=== PATIENT | male | born 2000 ===

== ENCOUNTER 2021-02-27 20:47 | Emergency (ER) | payer SELFPAY ==
[2021-02-27] MEDS ORDERED: Sodium Chloride 0.9% 1,000 ML IV ONE (21:18)
[2021-02-27] MEDS ORDERED: Ondansetron 4 MG/2 ML SDV IVPUSH ONE (21:19)
[2021-02-27] MEDS ORDERED: Ketorolac 30 MG/ML SDV IVPUSH ONE (21:21)
--- NOTE | 2021-02-27 21:32 | EDM.PDOC ---
<Warren Orr E - Last Filed: 02/27/21 21:38> ED HPI GENERAL MEDICAL PROBLEM - General Chief Complaint: Abdominal Pain Stated Complaint: ABDOMINAL PAIN Time Seen by Provider: 02/27/21 20:48 Source of Information: Reports: Patient History Limitations: Reports: No Limitations - History of Present Illness INITIAL COMMENTS - FREE TEXT/NARRATIVE: HISTORY AND PHYSICAL: History of present illness: Patient is a 20-year-old male who presents to the emergency room with complaints of nausea, vomiting, and chest pain when vomiting. He states the nasuea and vomiting just came on suddenly while at home. Once he started vomiting his chest started hurting. No chest pain at rest. Patient denies any fever, chills, headache, change in vision, syncope or near syncope. Denies any back pain, shortness of breath or cough. Denies any abdominal pain, diarrhea, constipation or dysuria. Has not noted any blood in urine or stool. Patient has been eating and drinking appropriately. No recent travel or sick contacts. Review of systems: As per history of present illness and below otherwise all systems reviewed and negative. Past medical history: As per history of present illness and as reviewed below otherwise noncontributory. Surgical history: As per history of present illness and as reviewed below otherwise noncontributory. Social history: See social history for further information Family history: As per history of present illness and as reviewed below otherwise noncontributory. Physical exam: General: Well developed and well nourished 20 year old male. Alert and orientated x 3. Nontoxic in appearance and in no acute distress. Vital signs are stable and have been reviewed by me. Nursing notes were reviewed. HEENT: Atraumatic, normocephalic, pupils equal and reactive bilaterally, negative for conjunctival pallor or scleral icterus, mucous membranes moist, trachea midline. No drooling or trismus noted. No meningeal signs. No hot potato voice noted. Lungs: Clear to auscultation bilaterally. No wheezes, rales, or rhonchi. Chest nontender (Hx of pectus excavatum). Normal work of breathing, no accessory muscles used. Heart: S1S2, regular rate and rhythm without overt murmur, gallops, or rubs. No JVD. No peripheral edema Abdomen: Soft, nondistended, nontender. Normoactive bowel sounds. Negative for masses or costovertebral tenderness. Skin: Intact, warm, dry. No lesions or rashes noted. Hematologic: No petechiae or purpra. Mucosa appropriate color and normal nail bed color and refill. Extremities: Atraumatic, moves all extremities per self without difficulty or deficits, negative for cords or calf pain. Neurovascular unremarkable. Neuro: Awake, alert, oriented. Cranial nerves II through XII unremarkable. Cerebellum unremarkable. Motor and sensory unremarkable throughout. Exam nonfocal. Psychiatric: Mood and affect are appropriate. Normal thought process. Answering questions appropriately. Please note that the patient was seen and evaluated during the 2019 SARS-CoV-2 novel coronavirus pandemic period. Community viral transmission is ongoing at time of this encounter and the emergency department is operating under pandemic response procedures. Medical Decision Making: Patient is a 20-year-old male who presents to the emergency room with complaints of nausea, vomiting and chest pain with emesis. Physical exam patient does not have any chest or abdominal tenderness. We will do basic lab work, IV fluids, Zofran and Toradol. Patient does have a leukocytosis without noted source, will do a CT scan for further evaluation. Diagnostics: CBC, CMP, Lipase Therapeutics: IV fluids, Zofran, Toradol Definitive disposition and diagnosis as appropriate pending reevaluation and review of above. - Related Data Allergies Allergy/AdvReac Type Severity Reaction Status Date / Time No Known Allergies Allergy Verified 02/27/21 21:18 Home Meds: Home Meds Famotidine [Pepcid] 20 mg PO BEDTIME #7 tab 02/27/21 [Rx] Ondansetron [Zofran ODT] 4 mg PO Q6H PRN #8 tab.dis 02/27/21 [Rx] Social & Family History - Tobacco Use Tobacco Use Status *Q: Never Tobacco User Second Hand Smoke Exposure: No - Recreational Drug Use Recreational Drug Use: No ED ROS GENERAL - Review of Systems Review Of Systems: Comprehensive ROS is negative, except as noted in HPI. ED EXAM, GI/ABD - Physical Exam Exam: See Below (See dictation) Departure - Departure Disposition: Home, Self-Care 01 Clinical Impression: Abdominal pain Qualifiers: Abdominal location: generalized Qualified Code(s): R10.84 - Generalized abdominal pain - Discharge Information Prescriptions: Famotidine [Pepcid] 20 mg PO BEDTIME #7 tab Ondansetron [Zofran ODT] 4 mg PO Q6H PRN #8 tab.dis PRN Reason: Nausea Instructions: Abdominal Pain, Adult Referrals: PCP,None [Primary Care Provider] - Forms: ED Department Discharge Additional Instructions: The following information is given to patients seen in the emergency department who are being discharged to home. This information is to outline your options for follow-up care. We provide all patients seen in our emergency department with a follow-up referral. The need for follow-up, as well as the timing and circumstances, are variable depending upon the specifics of your emergency department visit. If you don't have a primary care physician on staff, we will provide you with a referral. We always advise you to contact your personal physician following an emergency department visit to inform them of the circumstance of the visit and for follow-up with them and/or the need for any referrals to a consulting specialist. The emergency department will also refer you to a specialist when appropriate. This referral assures that you have the opportunity for follow-up care with a specialist. All of these measure are taken in an effort to provide you with optimal care, which includes your follow-up. Under all circumstances we always encourage you to contact your private physician who remains a resource for coordinating your care. When calling for follow-up care, please make the office aware that this follow-up is from your recent emergency room visit. If for any reason you are refused follow-up, please contact the [facility] Department at and asked to speak to the emergency department charge nurse. Please follow up with your primary care physician. If you do not have a primary care physician, see below: [facility] [address] [place] [id number] [facility] [address] [place] [id number] [facility] [address] [place] [id number] Sepsis Event Note (ED) - Evaluation Sepsis Screening Result: No Definite Risk <Gerson Ontiveros - Last Filed: 02/27/21 23:23> Course - Vital Signs Last Recorded V/S: Last Vital Signs Temp 96.1 F L 02/27/21 21:14 Pulse 74 02/27/21 22:19 Resp 18 02/27/21 21:14 BP 108/65 02/27/21 22:10 Pulse Ox 100 02/27/21 22:19 - Orders/Labs/Meds Orders: Active Orders 24 hr Category Date Time Status UA RFX AUBREY AND CULT IF INDIC [URIN] Stat Lab 02/27/21 20:51 Ordered Labs: Laboratory Tests 02/27/21 02/27/21 02/27/21 Range/Units 21:20 21:20 21:20 WBC 15.72 H (4.0-11.0) K/uL RBC 5.55 (4.50-5.90) M/uL Hgb 16.6 (13.0-17.0) g/dL Hct 47.4 (38.0-50.0) % MCV 85.4 (80.0-98.0) fL MCH 29.9 (27.0-32.0) pg MCHC 35.0 (31.0-37.0) g/dL RDW Std Deviation 39.8 (28.0-62.0) fl RDW Coeff of Mallory 13 (11.0-15.0) % Plt Count 221 (150-400) K/uL MPV 10.60 (7.40-12.00) fL Neut % (Auto) 89.9 H (48.0-80.0) % Lymph % (Auto) 4.7 L (16.0-40.0) % Wilkes % (Auto) 4.3 (0.0-15.0) % Eos % (Auto) 1.0 (0.0-7.0) % Baso % (Auto) 0.1 (0.0-1.5) % Neut # (Auto) 14.1 H (1.4-5.7) K/uL Lymph # (Auto) 0.7 (0.6-2.4) K/uL Wilkes # (Auto) 0.7 (0.0-0.8) K/uL Eos # (Auto) 0.2 (0.0-0.7) K/uL Baso # (Auto) 0.0 (0.0-0.1) K/uL Nucleated RBC % 0.0 /100WBC Nucleated RBCs # 0 K/uL Sodium 136 (136-148) mmol/L Potassium 3.9 (3.5-5.1) mmol/L Chloride 97 L (98-107) mmol/L Carbon Dioxide 23.4 (21.0-32.0) mmol/L BUN 22 H (7.0-18.0) mg/dL Creatinine 1.1 (0.8-1.3) mg/dL Est Cr Clr Drug Dosing 109.96 mL/min Estimated GFR (MDRD) > 60.0 ml/min Glucose 105 (74-106) mg/dL Calcium 10.2 H (8.5-10.1) mg/dL Total Bilirubin 2.0 H (0.2-1.0) mg/dL AST 17 (15-37) IU/L ALT 21 (14-63) IU/L Alkaline Phosphatase 105 (46-116) U/L Total Protein 9.1 H (6.4-8.2) g/dL Albumin 5.1 H (3.4-5.0) g/dL Globulin 4.0 (2.6-4.0) g/dL Albumin/Globulin Ratio 1.3 (0.9-1.6) Lipase (73-393) U/L SARS-CoV-2 RNA (BIANCA) NEGATIVE (NEGATIVE) 02/27/21 Range/Units 21:20 WBC (4.0-11.0) K/uL RBC (4.50-5.90) M/uL Hgb (13.0-17.0) g/dL Hct (38.0-50.0) % MCV (80.0-98.0) fL MCH (27.0-32.0) pg MCHC (31.0-37.0) g/dL RDW Std Deviation (28.0-62.0) fl RDW Coeff of Mallory (11.0-15.0) % Plt Count (150-400) K/uL MPV (7.40-12.00) fL Neut % (Auto) (48.0-80.0) % Lymph % (Auto) (16.0-40.0) % Wilkes % (Auto) (0.0-15.0) % Eos % (Auto) (0.0-7.0) % Baso % (Auto) (0.0-1.5) % Neut # (Auto) (1.4-5.7) K/uL Lymph # (Auto) (0.6-2.4) K/uL Wilkes # (Auto) (0.0-0.8) K/uL Eos # (Auto) (0.0-0.7) K/uL Baso # (Auto) (0.0-0.1) K/uL Nucleated RBC % /100WBC Nucleated RBCs # K/uL Sodium (136-148) mmol/L Potassium (3.5-5.1) mmol/L Chloride (98-107) mmol/L Carbon Dioxide (21.0-32.0) mmol/L BUN (7.0-18.0) mg/dL Creatinine (0.8-1.3) mg/dL Est Cr Clr Drug Dosing mL/min Estimated GFR (MDRD) ml/min Glucose (74-106) mg/dL Calcium (8.5-10.1) mg/dL Total Bilirubin (0.2-1.0) mg/dL AST (15-37) IU/L ALT (14-63) IU/L Alkaline Phosphatase (46-116) U/L Total Protein (6.4-8.2) g/dL Albumin (3.4-5.0) g/dL Globulin (2.6-4.0) g/dL Albumin/Globulin Ratio (0.9-1.6) Lipase 94 (73-393) U/L SARS-CoV-2 RNA (BIANCA) (NEGATIVE) Meds: Medications Discontinued Medications Generic Name Dose Route Start Last Admin Trade Name Freq PRN Reason Stop Dose Admin Sodium Chloride 1,000 mls @ 999 mls/hr 02/27/21 21:18 02/27/21 21:32 Normal Saline IV 02/27/21 22:18 999 mls/hr STAT ONE Administration Iopamidol 100 ml 02/27/21 22:44 02/27/21 22:45 Iopamidol 755 Mg/Ml 500 Ml Multipack Bottle IVPUSH 02/27/21 22:45 100 ml ONETIME STA Administration Ketorolac Tromethamine 30 mg 02/27/21 21:21 02/27/21 21:33 Ketorolac 30 Mg/Ml Sdv IVPUSH 02/27/21 21:22 30 mg ONETIME ONE Administration Ondansetron HCl 4 mg 02/27/21 21:19 02/27/21 21:33 Ondansetron 4 Mg/2 Ml Sdv IVPUSH 02/27/21 21:20 4 mg ONETIME ONE Administration - Re-Assessments/Exams Free Text/Narrative Re-Assessment/Exam: 02/27/21 23:22 CT imaging unremarkable. Patient feeling much better after medications. Tolerating p.o. Will discharge with Zofran and Pepcid. Recommend PMD follow- up. Departure - Departure Time of Disposition: 23:22 Condition: Good Sepsis Event Note (ED) - Focused Exam Vital Signs: Vital Signs Temp Pulse Resp BP Pulse Ox 02/27/21 22:19 74 100 02/27/21 22:10 108/65 02/27/21 21:14 96.1 F L 79 18 130/73 96
--- NOTE | 2021-02-27 21:33 | PCM.EKG ---
#1 Interpretation EKG Date: 02/27/21 Time: 21:28 Rhythm: NSR Rate (Beats/Min): 75 [place]: Normal P-Wave: Present QRS: Normal ST-T: Normal QT: Normal DC/PQ Interval: 119 Comparison: NA - No Prior EKG EKG Interpretation Comments: normal EKG
[2021-02-27 21:51] LABS: BLOOD UREA NITROGEN,BUN 22 mg/dL (7.0-18.0); CARBON DIOXIDE,CO2 23.4 mmol/L (21.0-32.0); CHLORIDE,CL 97 mmol/L (98-107); GLUCOSE RANDOM 105 mg/dL (74-106); POTASSIUM,K 3.9 mmol/L (3.5-5.1); SODIUM,NA 136 mmol/L (136-148)
[2021-02-27] MEDS ORDERED: Iopamidol 755 MG/ML 500 ML Multipack Bottle IVPUSH STA (22:44)
--- NOTE | 2021-02-27 23:03 | CT ---
INDICATION: Chest pain, leukocytosis TECHNIQUE: CT chest was acquired with 100 cc Isovue 370 IV contrast. COMPARISON: None FINDINGS: Cardiovascular structures: Heart size is normal. Thoracic aorta and main pulmonary artery are normal in caliber. Mediastinum and raven: No mass or adenopathy. Lungs: Clear. Pleura and pericardium: No effusions. Chest wall and axilla: No mass or adenopathy. Upper abdomen: Hepatic steatosis. Bones: Very mild pectus excavatum. IMPRESSION: No acute intrathoracic abnormality. Hepatic steatosis. Please note that all CT scans at this facility use dose modulation, iterative reconstruction, and/or weight-based dosing when appropriate to reduce radiation dose to as low as reasonably achievable. Dictated by Dotty Chu MD @ 02/27/2021 11:01:50 PM (Electronically Signed)
--- NOTE | 2021-02-27 23:07 | CT ---
INDICATION: Intractable nausea and vomiting, chest pain TECHNIQUE: CT abdomen and pelvis acquired with 100 cc Isovue 370 IV contrast. COMPARISON: None FINDINGS: Lower chest: Unremarkable. Liver: Unremarkable. Spleen: Unremarkable. Pancreas: Unremarkable. Gallbladder and bile ducts: Unremarkable. Adrenal glands: Unremarkable. Kidneys: Unremarkable. GI tract: Unremarkable. Appendix is not seen. Vascular structures: Unremarkable. Lymph nodes: Unremarkable. Miscellaneous: Unremarkable. No free air or significant free fluid. Pelvic Organs: Unremarkable. Bones: Unremarkable for age. IMPRESSION: No acute intra-abdominal process identified. Note that the appendix is not seen. No inflammatory changes identified in the pericecal region. Please note that all CT scans at this facility use dose modulation, iterative reconstruction, and/or weight-based dosing when appropriate to reduce radiation dose to as low as reasonably achievable. Dictated by Dotty Chu MD @ 02/27/2021 11:06:12 PM (Electronically Signed)
== END 2021-02-27 23:45 | disposition home or self-care (01) ==
LOC: MW.ED 20:47
DX: R10.84 Generalized abdominal pain (principal); D72.829 Elevated white blood cell count, unspecified; Z20.822 Contact with and (suspected) exposure to COVID-19
CPT/HCPCS: 36415; 71260; 74177; 80053; 83690; 85025; 87635; 96374; 96375; 99284; J1885; J2405; J7030; Q9967; U0002